=== PATIENT | female | born 1960 | race Caucasian/White ===

== ENCOUNTER → 2021-12-25 13:11 | Outpatient (CLI) | payer OTHER, SELFPAY ==
--- NOTE | ~2021-12-25 | DEXA_ITS ---
Bone Density Report Name: BEATRICE NARANJO Age: 61 Sex: Female Ethnicity: White Date of : 1960 Indication: postmenopausal; screening for osteoporosis; parental hip fracture; Referring Provider: Lg, Amira Felder Study: Bone densitometry was performed. Exam Date: December 25, 2021 Accession number: [id number] Bone Density: Region BMD T-score Z-score Classification AP Spine (L1-L4) 0.886 -1.5 0.2 Osteopenia Femoral Neck (Left) 0.636 -1.9 -0.5 Osteopenia Total Hip (Left) 0.796 -1.2 -0.1 Osteopenia Femoral Neck (Right) 0.653 -1.8 -0.3 Osteopenia Total Hip (Right) 0.800 -1.2 0.0 Osteopenia Total Hip Mean 0.798 -1.2 -0.1 Osteopenia World Health Organization criteria for BMD impression classify patients as: Normal (T-score at or above -1.0), Osteopenia (T-score between -1.0 and -2.5), or Osteoporosis (T-score at or below -2.5). 10-year Fracture Risk(1): Major Osteoporotic Fracture 17% Hip Fracture 1.2% Reported Risk Factors: [place] (), Neck BMD=0.636, BMI=22.4, parental fracture (1) FRAX(R) Version 3.08. Fracture probability calculated for an untreated patient. Fracture probability may be lower if the patient has received treatment. Clinical Information Provided by Patient: Parent has had a hip fracture Has used the following medications: Vitamin D Patient maximum height was 67 Menopause Age: 55 Does not regularly consume dairy products Drinks caffeinated beverages Onset of menses at age 11 Number of children 2 Impression: The patient has low bone mass, based on the Left Femoral Neck T-score. The patient has an estimated ten-year risk of hip fracture of 1.2% and an estimated ten-year risk of major fracture of 17%, based on the WHO FRAX algorithm. The patient has risk factors, including: parental hip fracture. Discussion: BONE DENSITY IS LOW AT ONE OR MORE SKELETAL SITES. This patient's lowest T-score is low at one or more skeletal sites. It meets the World Health Organization's (WHO) criteria for ?low bone mass? (T-score between -1.0 and -2.5). The patient's 10-year risk of fracture as calculated by FRAX is less than the threshold where pharmacological therapy is recommended by the National Osteoporosis Foundation (NOF). However, all treatment decisions require clinical judgment and consideration of individual patient factors, including patient preferences, comorbidities, previous drug use, risk factors not captured in the FRAX model (e.g., frailty, falls, vitamin D deficiency, increased bone turnover, interval significant decline in bone density) and possible under or overestimation of fracture risk by FRAX. The patient should follow a healthful lifestyle (good nutrition with adequate calcium and vitamin D, and appropriate weight-bearing exercise). Follow-Up: Consider repeating this
== END ==
PROVIDERS: PCP Nurse Practitioner Obstetrics & Gynecology; Visit Provider Nurse Practitioner Obstetrics & Gynecology
DX: Z78.0 Asymptomatic menopausal state (principal); M85.89 Other specified disorders of bone density and structure, multiple sites
CPT/HCPCS: 77080

== ENCOUNTER → 2022-07-30 14:56 | Outpatient (CLI) | payer OTHER, SELFPAY ==
--- NOTE | ~2022-07-30 | MM_ITS ---
EXAMINATION: MM screening tracy BI w chidi HISTORY: Screening mammogram TECHNIQUE: Craniocaudal and mediolateral oblique 3-D tomosynthesis images were obtained and synthetic 2-D images were generated. CAD analysis was submitted and interpreted. COMPARISON: 07/27/2021 outside mammogram examination 07/08/2020 bilateral diagnostic mammogram and bilateral breast ultrasound examination 6. I bilateral diagnostic mammogram and bilateral ultrasound examination 01/01/2020 bilateral screening mammogram BREAST PARENCHYMAL COMPOSITION: There are scattered areas of fibroglandular density. FINDINGS: New focal approximately 6 mm irregular opacity is noted in the anterior inner left breast (craniocaud al Tomosynthesis image 11/41). Diagnostic left mammogram and left breast ultrasound examination are r ecommended. Otherwise there is no evidence of suspicious mass, calcification, or architectural distortion to sugg est malignancy in either breast. There has been no suspicious interval change. IMPRESSION: 1. New focal approximately 6 mm irregular opacity in anterior inner left breast on CC view 2. Diagnostic left mammogram and left breast ultrasound examination are recommended. BI-RADS Category 0: Incomplete: Needs additional imaging evaluation. Reviewed, dictated and finalized at location B. 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 New focal approximately 6 mm irregular opacity in anterior inner left breast on CC view 2. Diagnostic left mammogram and left breast ultrasound examination are recomme nded. BI-RADS Category 0: Incomplete: Needs additional imaging evaluation.
== END ==
PROVIDERS: Visit Provider Nurse Practitioner Obstetrics & Gynecology
DX: Z12.31 Encounter for screening mammogram for malignant neoplasm of breast (principal); R92.8 Other abnormal and inconclusive findings on diagnostic imaging of breast
CPT/HCPCS: 77063; 77067

== ENCOUNTER → 2022-08-20 14:01 | Outpatient (CLI) | payer OTHER, SELFPAY ==
--- NOTE | ~2022-08-20 | MMUS_ITS ---
EXAMINATION: MM diagnostic tracy LT w chidi, US breast LT complete HISTORY: Follow-up left breast asymmetry TECHNIQUE: Additional 3-D tomosynthesis images of the left breast were performed and synthetic 2-D im ages were generated. CAD analysis was submitted and interpreted. High resolution complete left breast ultrasound was performed. COMPARISON: Comparison to multiple prior studies sequentially, with oldest reviewed study dated 10/19. BREAST PARENCHYMAL COMPOSITION: Breast composed of scattered areas of fibroglandular density FINDINGS: MAMMOGRAPHIC FINDINGS: There are no suspicious masses, calcifications or architectural distortion in the left breast to sugg est malignancy. ULTRASOUND: Complete US of all 4 quadrants of the left breast and retroareolar region was reviewed. Normal hetero geneous echotexture in the left breast. There is a simple cyst of the left breast at 6:00, 2 cm from the nipple measuring 5 mm. No sonographic evidence for malignancy. IMPRESSION: 1. No evidence for malignancy in the left breast. 2. Routine yearly screening mammogram and regular clinical breast examination are recommended. BI-RADS Category 2: Benign finding(s). Reviewed, dictated and finalized at location A. NESS OFFICE MANAGER IMPRESSION: 1. No evidence for malignancy in the left breast. 2. Routine yearly screening mammogram and regular clinical breast examination a re recommended. BI-RADS Category 2: Benign finding(s).
== END ==
PROVIDERS: Visit Provider Nurse Practitioner Obstetrics & Gynecology
DX: R92.8 Other abnormal and inconclusive findings on diagnostic imaging of breast (principal)
CPT/HCPCS: 76641; 77061; 77065; G0279

== ENCOUNTER → 2023-09-05 14:54 | Outpatient (CLI) | payer MEDICARE, SELFPAY ==
--- NOTE | ~2023-09-05 | MM_ITS ---
EXAMINATION: MM screening [facility] BI w chidi HISTORY: Screening mammogram TECHNIQUE: Craniocaudal and mediolateral oblique 3-D tomosynthesis images were obtained and synthetic 2-D images were generated. CAD analysis was submitted and interpreted. COMPARISON: 08/20/2022, 07/30/2022, 07/27/2021, 07/08/2020 BREAST PARENCHYMAL COMPOSITION: There are scattered areas of fibroglandular density. FINDINGS: No suspicious mass, calcification, or architectural distortion are identified in either mable ast to suggest malignancy. There has been no suspicious interval change. IMPRESSION: 1. No mammographic evidence of malignancy. 2. Recommend routine screening mammography in one year. BI-RADS Category 1: Negative Reviewed, dictated and finalized at location A. CIATE SALES
== END ==
PROVIDERS: PCP Nurse Practitioner Obstetrics & Gynecology; Visit Provider Nurse Practitioner Obstetrics & Gynecology
DX: Z12.31 Encounter for screening mammogram for malignant neoplasm of breast (principal)
CPT/HCPCS: 77063; 77067

== ENCOUNTER 2024-02-20 10:42 | Outpatient (CLI) | payer MEDICARE, SELFPAY ==
--- NOTE | ~2024-02-20 | US_ITS ---
US pelvic complete w TV Ordering provider: Millie Askew History: . Menopausal and female climacteric states . Comparison: None. Technique: Transabdominal and endovaginal ultrasound of the pelvis (Doppler ultrasound interrogation techniques used as needed for this exam.) FINDINGS: CERVIX: Normal. UTERUS: Measures 4.5x 1.6x 3.5 cm in length which is within normal limits and is anteverted. No myom etrial masses. ENDOMETRIUM: Normal in thickness measuring 1.7 mm. No endometrial masses, cysts or fluid. CUL DE SAC: Minimal free fluid. RIGHT OVARY: Not visualized. LEFT OVARY: Not visualized. ADNEXA: Normal. No mass. IMPRESSION: Nonvisualization of the ovaries. Minimal fluid in the cul-de-sac. Otherwise, normal pelvic ultrasound . Reviewed, dictated and finalized at location A. IMPRESSION: Nonvisualization of the ovaries. Minimal fluid in the cul-de-sac. Otherwise, no rmal pelvic ultrasound.
== END 2024-02-20 10:43 ==
LOC: MICIMG 10:45
DX: N95.1 Menopausal and female climacteric states (principal)
CPT/HCPCS: 76830; 76856

== ENCOUNTER 2024-07-03 13:25 | Outpatient (CLI) | payer MEDICARE, SELFPAY ==
--- NOTE | ~2024-07-03 | US_ITS ---
Thyroid ultrasound. Clinical History: Iram's thyroiditis Findings: Real-time sonography of the thyroid gland was performed. The right lobe measures 4.7 x 1.7 x 1.8 cm. The left lobe measures 4.5 x 1.0 x 1.3 cm. The isthmus is 3 mm in AP diameter. Solid hyperechoic nodule at the inferior left thyroid pole measures 2.3 x 1.3 x 1.3 cm. Solid predomi nantly hyperechoic circumscribed mass at the right lower pole measures 2.4 x 1.6 x 1.9 cm. Impression: Bilateral TI-RADS 3 nodules, as above. Given size, annual follow-up ultrasound recommended.. Reviewed, dictated and finalized at location . AND SPICE SUPERVISOR Impression: Bilateral TI-RADS 3 nodules, as above. Given size, annual follow-up ultrasound recommended..
== END 2024-07-03 13:26 | disposition home or self-care (01) ==
LOC: MICIMG 13:28
DX: E04.2 Nontoxic multinodular goiter (principal); E06.3 Autoimmune thyroiditis
CPT/HCPCS: 76536

== ENCOUNTER 2024-09-18 12:45 | Outpatient (CLI) | payer MEDICARE, SELFPAY ==
--- NOTE | ~2024-09-18 | DEXA_ITS ---
Bone Density Report Name: BEATRICE ROMANO Age: 64 Sex: Female Ethnicity: White Date of : 1960 Indication: postmenopausal; screening for osteoporosis; parental hip fracture; Referring Provider: OCTAVIA STARR Study: Bone densitometry was performed. Exam Date: September 18, 2024 Accession number: [id number] Bone Density: Region BMD T-score Z-score Classification AP Spine(L1-L4) 0.881 -1.5 0.3 Osteopenia Femoral Neck (Left) 0.600 -2.2 -0.7 Osteopenia Total Hip (Left) 0.772 -1.4 -0.1 Osteopenia Femoral Neck (Right) 0.692 -1.4 0.2 Osteopenia Total Hip (Right) 0.841 -0.8 0.5 Normal Total Hip Mean 0.806 -1.1 0.2 Osteopenia World Health Organization criteria for BMD impression classify patients as: Normal (T-score at or above -1.0), Osteopenia (T-score between -1.0 and -2.5), or Osteoporosis (T-score at or below -2.5). 10-year Fracture Risk(1): Major Osteoporotic Fracture 20% Hip Fracture 2.7% Reported Risk Factors: [place] (), Neck BMD=0.600, BMI=22.7, parental fracture (1) FRAX(R) Version 3.08. Fracture probability calculated for an untreated patient. Fracture probability may be lower if the patient has received treatment. Clinical Information Provided by Patient: Parent has had a hip fracture Has used the following medications: HRT (i.e. estrogen/hormone therapy), Vitamin D, Calcium Patient maximum height was 67.5 Menopause Age: 53 Drinks caffeinated beverages Onset of menses at age 11 Number of children 2 Impression: The patient has low bone mass, based on the Left Femoral Neck T-score. The patient has an estimated ten-year risk of hip fracture of 2.7% and an estimated ten-year risk of major fracture of 20%, based on the WHO FRAX algorithm. The patient has risk factors, including: parental hip fracture. Discussion: BONE DENSITY IS LOW AT ONE OR MORE SKELETAL SITES. THE PATIENT'S BMD AND CLINICAL RISK FACTORS CONTRIBUTE TO THIS PATIENT'S INCREASED RISK OF FRACTURE. This patient's lowest T-score is low at one or more skeletal sites. It meets the World Health Organization's (WHO) criteria for ?low bone mass? (T-score between -1.0 and -2.5). The patient's 10-year risk of a major osteoporotic fracture as calculated by FRAX exceeds the threshold where pharmacological therapy is recommended by the National Osteoporosis Foundation (NOF). However, all treatment decisions require clinical judgment and consideration of individual patient factors, including patient preferences, comorbidities, previous drug use, risk factors not captured in the FRAX model (e.g., frailty, falls, vitamin D deficiency, increased bone turnover, interval significant decline in bone density) and possible under or overestimation of fracture risk by FRAX. The patient should follow a healthful lifestyle (good nutrition with adequate calcium and vitamin D, and appropriate weight-bearing exercise). Follow-Up: Consider a repeat BMD and Vertebral Fracture Assessment (VFA) exam in 2 years or sooner if medically necessary, to reassess this patient's status. Reported by: GABBY on 09/18/2024 2:33:00 PM. Reviewed, dictated and finalized at location AWill CHANEL
--- OUTSIDE RECORDS SUMMARY | 2024-09-18 14:26 | XMS_ITS | Clinical Summary ---
Author Organization 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 12/22/19 23 Active MAGNESIUM GLYCINATE OR Take by mouth daily. Active Cyanocobalamin (VITAMIN B 12 OR) Take 4,000 mcg by mouth daily. Active HEEL EDGE INKER MACHINE THYROID 120 MG Tab tablet TAKE ONE Tablet BY MOUTH EVERY MORNING AT LEAST 30 MINUTES BEFORE FOOD/MEDSSUPPLE MENTS/COFFEE 03/15/20 24 Active testosterone 100 MG pellet Take by implantation route. Active spironolactone (ALDACTONE) 50 MG tablet TAKE 1/2 TO 1 TABLET BY MOUTH IN THE MORNING FOR PREVENT FACIAL HAIR, ACNE, HAIR LOSS, AND SWELLING Active CHOLECALCIFERO L 1.25 mg capsule TAKE 1 CAPSULE ONE TIME PER WEEK Active LORazepam (ATIVAN) 1 MG tablet 1 tablet (1 mg total) daily as needed. 025 Discontinued( Pt. elected to discontinue med) rosuvastatin (CRESTOR) 5 MG tablet Take 1 tablet (5 mg total) by mouth nightly at bedtime. 04/28/20 025 Discontinued( Pt. elected to discontinue med) IMVEXXY MAINTENANCE PACK 10 MCG INSERT 2 (two) times a week. 03/03/20 23 025 Discontinued( Pt. elected to discontinue med) calcium citrate-vitami n D (CITRACAL PETITES/VIT D) 200-6.25 MG-MCG Tab Take 1 tablet by mouth nightly at bedtime. 025 Discontinued( Pt. elected to discontinue med) traZODone (DESYREL) 50 MG tablet Take 2 tablets (100 mg total) by mouth nightly at bedtime. 2-3 at bedtime 025 Discontinued( Pt. elected to discontinue med) Active Problems Problem Noted Date Diagnosed Date Hallux valgus (acquired), left foot 08/04/2023 Bunion of left foot 06/26/2023 Mixed hyperlipidemia 06/26/2023 Raynaud's phenomenon without gangrene 06/21/2023 Chronic lower back pain 06/21/2023 Encounters Date Type Department Care Team Description 09/18/2024 Orders Only [facility] Orthopedic & Sports Medicine [facility] [address] [place] [address] David Villalobos MD 09/06/2024 Telephone [facility] Family Internal [address] [phone] Rodrick Donohue MD Prior Authorization (MRI RT knee) 09/05/2024 Telephone [facility] Sports Medicine [facility] [address] [place] [address] David Villalobos MD Appointment Request 09/04/2024 Orders Only [facility] Orthopedic Sports [facility] [address] [place] [address] David Villalobos MD 08/30/[address] [facility] Internal [address] [phone] Rodrick Donohue MD Prior Authorization for MRI of knee 08/23/2024 9:00 AM CAT TENDER Office Visit [facility] Internal [address] [phone] Rodrick Donohue MD Knee Pain (Patient c/o RT knee pain, requesting an order for an MRI. Patient notes she has an appointment with ortho in August) 08/23/2024 Travel 08/08/2024 MyChart Message Enc [facility] Family & Internal Medicine [address] [phone] Rodrick Donohue MD Request for MRI of knee 08/06/2024 Telephone [facility] Orthopedic & Sports Medicine [place] [address] [place] [address] David Villalobos MD Question 07/30/2024 Telephone [facility] [place] [address] [place] [address] Donald Almaraz PA Called To Cancel Office Appt. 07/30/2024 Telephone [facility] [place] [address] [place] [address] Donald Almaraz PA Called To Cancel Office Appt. 07/27/2024 Orders Only [facility] [place] [address] [place] [address] David Villalobos MD from Last 3 Months Immunizations Name Administration Dates Next Due Influenza (Generic) 04/14/2022,05/22/2019,2013 Influenza Adult (Generic) 07/16/2021,,05/31/2018,05/19/2017,2015,05/01/2015 Pneumococcal (Prevnar 13) 03/03/2015 Shingrix 07/30/2022,04/14/2022 Tdap (Generic) 03/19/2019 Social History Tobacco Use Types Packs/Day Years Used Date Smoking Tobacco: Never Passive Smoke Exposure: Never Smokeless Tobacco: Never Tobacco Cessation:Counseling Given: Not Answered Alcohol Use Standard Drinks/Week Comments Yes 6.7 (1 standard drink = 0.6 oz p ure alcohol) PHQ-2 Answer Date Recorded Patient Health Questionnaire-2 Score 0 08/23/2024 Comments No Sex and Gender Information Value Date Recorded Sex Assigned at Female 08/23/2024 9:11 AM CAT TENDER Legal Sex Female 10:20 PM CDT Gender Identity Female 08/20/2024 2:56 PM CAT TENDER Sexual Orientation Not on file Last Filed Vital Signs Vital Sign Reading Time Taken Comments Blood Pressure 102/66 08/23/2024 9:11 AM CAT TENDER Pulse 72 08/23/2024 9:11 AM CAT TENDER Temperature 36.7 C (98.1 F) 08/23/2024 9:11 AM CAT TENDER Respiratory Rate 16 08/23/2024 9:11 AM CAT TENDER Oxygen Saturation 98% 08/23/2024 9:11 AM CAT TENDER Inhaled Oxygen Concentration - - Weight 65.7 kg (144 lb 12.8 oz) 08/23/2024 9:11 AM CAT TENDER Height 170.2 cm (5' 7 ) 08/23/2024 9:11 AM CAT TENDER Body Mass Index 22.68 08/23/2024 9:11 AM CAT TENDER Plan of Treatment Upcoming Encounters Date Type Department Care Team (Late st Contact Info) Description 09/19/2024 2:40 PM CAT TENDER Office Visit [facility] Orthopedic & Sports Medicine [facility] [address] [place] [address] David Villalobos MD [address] [place] [address] 09/24/2024 1:20 PM CAT TENDER Office Visit [facility] Orthopedic & Sports Medicine [facility] [address] [place] [address] David Villalobos MD [address] [place] [address] 01/08/2025 8:00 AM CDT Office Visit [facility] Family & Internal Medicine [address] [phone] Rodrick Donohue MD [address] [place] [phone] Health Maintenance Due Date Last Done Comments Colorectal Cancer Screening Colonoscopy (10 Years) 1960 Annual Medicare Wellness Visit 2023 Dexa Scan (General) 2023 Pneumococcal Vaccine: 65+ Years (2 of 2 - PPSV23 or PCV20) 2023 03/03/2015 COVID-19 Vaccine (2 - 2023- season) 2024 07/16/2021 Influenza Adult (#1) 2024 04/14/2022, 07/16/2021, 05/23/2020, Additional history exists Mammogram Screening 08/20/2024 08/20/2022, 07/30/2022, 07/27/2021 DTaP, Tdap and Td Vaccines (2 - Td or Tdap) 03/19/2029 03/19/2019 RSV Immunization or 60+ Years (1 - 1-dose 75+ series) 2033 Zoster Vaccines Completed 07/30/2022, 04/14/2022 Hepatitis C Completed 01/09/2024 PHQ-2 (Physician [place]) Completed 08/23/2024 Meningococcal B Vaccine Aged Out No l onger eligible based on patient's age to complete this topic Meningococcal Vaccine Aged Out No umberto ricky eligible based on patient's age to complete this topic RSV Immunizations Under 20 Months Aged Out No longer eligible based on patient's age to complete this topic Medical Devices Implanted Type Area Director Banking Device Identifier Shelf Expiration Date Model / Serial / Lot Standard Lapidus Plate Implanted:Qty : 1 on 09/15/2023 by David Villalobos MD at [facility] Plate Left: [email or web address] [id number] / / 4.0 X 37.5mm Max Torque Lag Screw Implanted:Qty : 1 on 09/15/2023 by David Villalobos MD at [facility] Screw Left: Foot [employer] [id number] / / 3.5 X36mm Locking Screw Implanted:Qty : 1 on 09/15/2023 by David Villalobos MD at [facility] Screw Left: [facility] [employer] [id number] / / 3.5 X 28mm Locking Screw Implanted:Qty : 1 on 09/15/2023 by David Villalobos MD at [facility] Screw Left: Foot [employer] [id number] / / 3.5mm X 22mm Non-Locking Screw Implanted:Qty : 1 on 09/15/2023 by David Villalobos MD at [facility] Screw Left: Foot [employer] [id number] / / 3.5 X 22mm Locking Screw Implanted:Qty : 1 on 09/15/2023 by David Villalobos MD at [facility] Screw Left: Foot [employer] [id number] / / 3.5mm X 18mm Locking Screw Implanted:Qty : 1 on 09/15/2023 by David Villalobos MD at [facility] Screw Left: Foot [employer] [id number] / / [employer] Nitinol Staple Kit 10mm X 10mm Implanted:Qty : 1 on 09/15/2023 by David Villalobos MD at [facility] Staple Left: Foot [employer] [id number] 06/24/2028 [id number] / / [id number] Procedures Procedure Name Priority Date/Time Associated Diagnosis Comments XR KNEE RT 3V Routine 08/23/2024 10:08 AM CAT TENDER Acute pain of right knee HEPATITIS C ANTIBODY Routine 01/09/2024 3:31 PM CDT Need for hepatitis C screening test MAMMOGRAM GENERIC (SCAN ORDER) 08/20/2022 from Last 3 Months or Most Recently Relevant to Health Maintenance Results * XR KNEE RT 3V (08/23/2024 10:08 AM CAT TENDER) Anatomical Region Laterality Modality Knee Radiographic Sandi ging 08/23/2024 1:15 PM CAT TENDER Impressions 08/23/2024 1:16 PM CAT TENDER IMPRESSION: No significant radiographic abnormality. Ordered By: RODRICK DONOHUE Interpreted By: Aman Mcnulty MD, 08/23/2024 1:15 PM Narrative 08/23/2024 1:16 PM CAT TENDER [facility] [place] [address] Examination: XR KNEE RT 3V Exam time: 08/23/2024 9:55 AM Clinical history: Chronic right knee pain/popping. Comparison: No prior exam Technique: Upright AP and lateral views. Farber view. Findings: Medial, lateral, and patellofemoral joint spaces appear within normal limits. No evidence of hypertrophic degenerative changes. No radiographic evidence of joint effusion. No evidence of fracture, focal bone lesions, or abnormal periosteal reactions. Procedure Note Aman Mcnulty MD - 08/23/2024 [facility] [id number] Examination: XR KNEE RT 3V Exam time: 08/23/2024 9:55 AM Clinical history: Chronic right knee pain/popping. Comparison: No prior exam Technique: Upright AP and lateral views. Farber view. Findings: Medial, lateral, and patellofemoral joint spaces appear withinnormal limits. No evidence of hypertrophic degenerative changes. Noradiographic evidence of joint effusion. No evidence of fracture, focalbone lesions, or abnormal periosteal reactions. IMPRESSION: No significant radiographic abnormality. Ordered By: RODRICK DONOHUE Interpreted By: Aman Mcnulty MD, 08/23/2024 1:15 PM us Rodrick Donohue MD GENERAL IMAGING Final Result * HEPATITIS C ANTIBODY (01/09/2024 3:31 PM CDT) HEPATITIS C AB NON-REACTI VE NON-REACT DOMINGO 01/09/2024 9:46 PM CDT [facility] Comment: ANTIBODIES TO HCV NOT DETECTED. DOES NOT EXCLUDE THE POSSIBILITY OF EXPOSURE TO HCV. 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
--- OUTSIDE RECORDS SUMMARY | 2024-09-18 14:26 | XMS_ITS | Referral Summary ---
Author Organization [facility] Address [address] [place] [address] Care Team Providers Care Vp Outcomes Name Role Phone Rodrick Donohue MD Primary Care Provider [phone] Encounters Date Type Department Care Team Description 08/16/2024 Telephone [facility] Ophthalmology [address] [place] [address] Albaro Clark MD Reschedule POV 08/10/2024 8:30 AM BUTTON BREAKER OPERATOR Office Visit [facility] Ophthalmology [address] [facility] [address] [place] [phone] Albaro Clark MD Pseudophakia, left eye (Primary Dx) 08/09/2024 7:30 AM BUTTON BREAKER OPERATOR - 08/09/2024 8:10 AM BUTTON BREAKER OPERATOR Surgery [facility] Operating Room [address] [facility] [place] [place] [phone] Albaro Clark MD EXTRACTION CATARACT - PHACOEMULSIFICATION AND LENS IMPLANT 08/09/2024 7:24 AM BUTTON BREAKER OPERATOR Anesthesia Event [facility] Operating Room [address] [facility] [place] [phone] Phil Leyva MD Brake, Barbara E., NP 08/09/2024 5:58 AM BUTTON BREAKER OPERATOR - 08/09/2024 8:36 AM BUTTON BREAKER OPERATOR Hospital Encounter [facility] Operating Room [address] 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) Discharge Disposition: Discharge to home or self care 08/06/2024 Telephone [facility] Ophthalmology [address] [facility] [address] [place] [address] Albaro Clark MD 07/20/2024 Orders Only [facility] Ophthalmology [address] [address] Albaro Clark MD Status post cataract extraction and insertion of intraocular lens of left eye (Primary Dx) from Last 3 Months Allergies No known active allergies Medications lifitegrast (Xiidra) 5 % dropperette Administer 0.1 each (1 drop total) into affected eye(s) 2 (two) times a day 3 Active thyroid (ARMOUR THYROID) 120 mg tabletIndicatio ns:hypothyroidi sm Take 1 tablet (120 mg total) by mouth every morning 4 Active magnesium gluconate (MAGONATE) 500 mg (27 mg elemental) tabletIndicatio ns:hypomagnesem ia Take 1 tablet (500 mg total) by mouth nightly Active bisacodyl EC (DULCOLAX EC) 5 mg EC tabletIndicatio ns:constipation Take 1 tablet (5 mg total) by mouth daily as needed for constipation Active prednisoLONE acetate (PRED FORTE) 1 % ophthalmic suspensionIndic ations:Status post cataract extraction and insertion of intraocular lens of left eye Administer 1 drop into the left eye 4 (four) times a day START DROP AFTER SURGERY. BRING DROP TO SURGICAL PROCEDURE 10 mL 2 4 Active moxifloxacin (VIGAMOX) 0.5 % ophthalmic solutionIndicat ions:Status post cataract extraction and insertion of intraocular lens of left eye Administer 1 drop into the left eye 4 (four) times a day START DROP AFTER SURGERY. BRING DROP TO SURGICAL PROCEDURE 3 mL 3 4 Active MELATONIN ORALIndications :sleep Take 6 mg by mouth nightly Active UNABLE TO FINDIndications :hormone replacement Med Name: Estradiol pellets 25 mg every 4 months Active UNABLE TO FIND 1 each nightly Med Name: Progesterone bioidentical hormone Active Active Problems Problem Noted Date Diagnosed Date Combined forms of age-related cataract of left e tessa 06/11/2024 Social History Tobacco Use Types Packs/Day Years Used Date Smoking Tobacco: Never Smokeless Tobacco: Never Tobacco Cessation:Counseling Given: Not Answered AUDIT-C Answer Date Recorded Q1: How often do you have a drink containing alc ohol? 2-3 times a week 08/09/2024 Q2: How many drinks containi ng alcohol do you have on a typical day when you are drinking? 1 or 2 08/09/2024 Q3: How often do you have si x or more drinks on one occasion? Never 08/09/2024 Personal Safety Answer Date Recorded Have you ever been in or are you currently in a harmful physical or emotional relationship or is someone making you feel afraid or unsafe? Denies 08/09/2024 Comments No Sex and Gender Information Value Date Recorded Sex Assigned at Not on file Legal Sex Female 3:49 AM BUTTON BREAKER OPERATOR Gender Identity Female 08/05/2024 8:41 AM BUTTON BREAKER OPERATOR Sexual Orientation Not on file Last Filed Vital Signs Vital Sign Reading Time Taken Comments Blood Pressure 110/64 08/09/2024 8:25 AM BUTTON BREAKER OPERATOR Pulse 60 08/09/2024 8:30 AM BUTTON BREAKER OPERATOR Temperature 36.3 C (97.3 F) 08/09/2024 7:50 AM BUTTON BREAKER OPERATOR Respiratory Rate 27 08/09/2024 8:30 AM BUTTON BREAKER OPERATOR Oxygen Saturation 98% 08/09/2024 8:30 AM BUTTON BREAKER OPERATOR Inhaled Oxygen Concentration - - Weight 65.3 kg (144 lb) 08/09/2024 6:15 AM BUTTON BREAKER OPERATOR Height 170.2 cm (5' 7 ) 08/09/2024 6:15 AM BUTTON BREAKER OPERATOR Body Mass Index 22.55 08/09/2024 6:15 AM BUTTON BREAKER OPERATOR Plan of Treatment Not on file Medical Devices Implanted Type Area Ditch Digger Device Identifier Shelf Expiration Date Model / Serial / Lot [employer] Lens Iol Cca0t0.215 [employer] Cca0t0.215 - [id number] - [id number] Implanted:Qty: 1 on 08/09/2024 by Albaro Clark MD at [facility] Lens Left: Eye [employer] 07/03/2027 CCA0T0.215 / [id number] / Procedures Procedure Name Priority Date/Time Associated Diagnosis Comments EXTRACTION CATARACT - PHACOEMULSIFICATION AND LENS IMPLANT 08/09/2024 7:27 AM BUTTON BREAKER OPERATOR Combined forms of age-related cataract of left eye SERUM HEPATITIS C AB Routine 10/06/2012 4:00 AM CDT from Last 3 Months or Most Recently Relevant to Health Maintenance Results * Serum Hepatitis C ab (10/06/2012 4:00 AM CDT) HCV ab Negative NEG HISTORICAL RESULTS Serum 10/06/2012 4:00 AM CDT Narrative HISTORICAL RESULTS - 10/07/2012 4:37 AM CDT LAB Frequency Standing Order? No Expiration Date: Interpretive Data If confirmation is required, call Laboratory Customer Service to request sample to be sent to [facility] for Hepatitis C Virus (HCV) RNA Detection and Quantitation by Real-Time Reverse Gun Perforator Loader-PCR (RT-PCR). Current interpretive data was last revised on 2011 us Phil Chavarria MD LAB BLOOD ORDERABLES Final Result HISTORICAL RESULTS from Last 3 Months or Most Recently Relevant to Health Maintenance Insurance T MEDICARE [facility] MEDICARE Care Teams Vp Outcomes Relationship Specialty Start Date End Date Rodrick Donohue MD [address] [place] [address] PCP - General Internal Medicine 05/16/24
--- OUTSIDE RECORDS SUMMARY | 2024-09-18 14:26 | XMS_ITS | Clinical Summary ---
Author Organization [facility] Address [address] [place] [address] Care Team Providers Care Airflight Attendants Supervisor Name Role Phone Rodrick Donohue MD Primary Care Provider [phone] Allergies No known active allergies Medications lifitegrast [...] forms of age-related cataract of left e ye 06/11/2024 Encounters Date Type Department Care Team Description 08/16/2024 Telephone [facility] Ophthalmology [facility] [place] [address] Albaro Clark MD Reschedule POV 08/10/2024 8:30 AM TIE IN MACHINE OPERATOR Office Visit [facility] Ophthalmology [address] [place] [phone] Albaro Clark MD Pseudophakia, left eye (Primary Dx) 08/09/2024 7:30 AM TIE IN MACHINE OPERATOR - 08/09/2024 8:10 AM TIE IN MACHINE OPERATOR Surgery [facility] Operating Room [address] [facility] [place] [address] Albaro Clark MD EXTRACTION CATARACT - PHACOEMULSIFICATION AND LENS IMPLANT 08/09/2024 7:24 AM TIE IN MACHINE OPERATOR Anesthesia Event [facility] Operating Room [address] [facility] [place] [address] hPil Leyva MD Brake, Barbara E., NP 08/09/2024 5:58 AM TIE IN MACHINE OPERATOR - 08/09/2024 8:36 AM TIE IN MACHINE OPERATOR Hospital Encounter [facility] Operating Room [address] [facility] [place] [address] Albrao Clark MD 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) Discharge Disposition: Discharge to home or self care 08/06/2024 Telephone [facility] Ophthalmology [address] [place] [address] Albaro Clark MD 07/20/2024 Orders Only [facility] Ophthalmology [address] [place] [address] Albaro Clark MD Status post cataract extraction and insertion of intraocular lens of left eye (Primary Dx) from Last 3 Months Surgical History Surgery Date Site/Laterality Comments BUNIONECTOMY 07/25/2022 - 07/24/2023 Left COLONOSCOPY SECTION x2 UPPER GASTROINTESTINAL ENDOSCOPY APPENDECTOMY 07/25/2013 - 07/24/2014 Medical History Medical History Date Comments Thyroid disease 2010 Hypothyroidism Cataract Family History Medical History Relation Name Comments Macular degeneration Mother Anesthesia problems Neg Hx Glaucoma Neg Hx Relation Name Status Comments Mother Social History Tobacco Use Types Packs/Day Years [...] on file Legal Sex Female 3:49 AM TIE IN MACHINE OPERATOR Gender Identity Female 08/05/2024 8:41 AM TIE IN MACHINE OPERATOR Sexual Orientation Not on file Obstetrics History Last Filed Vital Signs Vital Sign Reading Time Taken Comments Blood Pressure 110/64 08/09/2024 8:25 AM TIE IN MACHINE OPERATOR Pulse 60 08/09/2024 8:30 AM TIE IN MACHINE OPERATOR Temperature 36.3 C (97.3 F) 08/09/2024 7:50 AM TIE IN MACHINE OPERATOR Respiratory Rate 27 08/09/2024 8:30 AM TIE IN MACHINE OPERATOR Oxygen Saturation 98% 08/09/2024 8:30 AM TIE IN MACHINE OPERATOR Inhaled Oxygen Concentration - - Weight 65.3 kg (144 lb) 08/09/2024 6:15 AM TIE IN MACHINE OPERATOR Height 170.2 cm (5' 7 ) 08/09/2024 6:15 AM TIE IN MACHINE OPERATOR Body Mass Index 22.55 08/09/2024 6:15 AM TIE IN MACHINE OPERATOR Plan of Treatment Health Maintenance Due Date Last Done Comments Breast Cancer Screening-Mammogram 1958 Colon Cancer Screening-Colonoscopy 1960 Depression Screening 1958 Osteoporosis Screening-Bone Density Scan 1958 Hepatitis B Screening 1976 Pneumococcal vaccine 65+ (2 of 2 - PPSV23) 03/03/2016 03/03/2015 Well Visit 65+ 2023 Covid-19 Vaccine (4 - 2023-2 5 season) 2024 07/16/2021, 09/16/2020, 08/26/2020 Influenza Vaccine (#1) 2024 2, 07/16/2021, 05/23/2020, Additional history exists Fall Risk Assessment 08/09/2025 08/09/2024 DTaP/Tdap/Td Vaccine (2 - Td or Tdap) 03/19/2029 03/19/2019 Hepatitis C Screening Completed 10/06/2012 Zoster Vaccine Completed 07/30/2022, 04/14/2022 Medical Devices Implanted Type Area Stock Raiser Device Identifier Shelf Expiration Date Model / Serial / Lot [employer] Lens Iol Cca0t0.215 [employer] Cca0t0.215 - [id number] - [id number] Implanted:Qty: 1 on 08/09/2024 by Albaro Clark MD at [facility] Lens Left: Eye [employer] 07/03/2027 CCA0T0.215 / [id number] / Procedures Procedure Name Priority Date/Time Associated Diagnosis Comments EXTRACTION CATARACT - PHACOEMULSIFICATION AND LENS IMPLANT 08/09/2024 7:27 AM TIE IN MACHINE OPERATOR Combined forms of age-related cataract of [...] to request sample to be sent to [facility] for Hepatitis C Virus (HCV) RNA Detection and Quantitation by Real-Time Reverse Lamps Tester And Inspector-PCR (RT-PCR). Current interpretive data was last revised on 2011 us Phil Chavarria MD LAB BLOOD ORDERABLES Final Result HISTORICAL RESULTS from Last 3 Months or Most Recently Relevant to Health Maintenance Insurance AET MEDICARE [employer] MEDICARE Care Teams Airflight Attendants Supervisor Relationship Specialty Start Date End Date Rodrick Donohue MD [address] [place] [address] PCP - General Internal Medicine 05/16/24
--- OUTSIDE RECORDS SUMMARY | 2024-09-18 14:26 | XMS_ITS | Encounter Summary ---
Author Organization [facility] Address [address] [place] [address] Care Team Providers Care Event Decorator And Designer Name Role Phone Rodrick Donohue MD Primary Care Provider [phone] Encounter Details Date Type Department Care Team (Late Contact Info) Description 09/18/2024 Orders Only [facility] Medical [facility] Orthopedic & Sports Medicine [place] [address] [place], [place] [phone] David Villalobos MD [address] [place], [place] [address] [phone] Social History Tobacco Use Types Packs/Day Years Used Date Smoking Tobacco: Never Passive Smoke Exposure: Never Smokeless Tobacco: Never Alcohol Use Standard Drinks/Week Comments Yes 6.7 (1 standard drink = 0.6 oz p ure alcohol) PHQ-2 Answer Date Recorded Patient Health Questionnaire-2 Score 0 08/23/2024 Comments No Sex and Gender Information Value Date Recorded Sex Assigned at Female 08/23/2024 9:11 AM GAMBLING FLOOR SUPERVISOR Legal Sex Female 10:20 PM CDT Gender Identity Female 08/20/2024 2:56 PM GAMBLING FLOOR SUPERVISOR Sexual Orientation Not on file documented as of this encounter Plan of Treatment Upcoming Encounters Date Type Department Care Team (Late st Contact Info) Description 09/19/2024 2:40 PM GAMBLING FLOOR SUPERVISOR Office Visit [facility] Medical [facility] Orthopedic & Sports Medicine [place] [address] [place], [place] [phone] David Villalobos MD [address] [place] [address] 09/24/2024 1:20 PM GAMBLING FLOOR SUPERVISOR Office Visit [facility] Orthopedic & Sports Medicine [facility] [address] [place] [address] David Villalobos MD [address] [place] [address] 01/08/2025 8:00 AM CDT Office Visit [facility] Medical [facility] Family & Internal Medicine [facility] [address] [place] [address] Rodrick Donohue MD [address] [place] [address] Scheduled Orders Name Type Priority Associated Diagnoses Orde r Schedule OXR LT FOOT M3V Imaging Routine History of foot surgery Expected: 09/24/2024, Expires: 09/18/2025 documented as of this encounter Visit Diagnoses Diagnosis History of foot surgery- Primary Personal history of surgery to other organs documented in this encounter Care Teams Event Decorator And Designer Relationship Specialty Start Date End Date Rodrick Donohue MD [address] [place] [address] PCP - General INTERNAL MEDICINE 06/21/23 documented as of this encounter
--- OUTSIDE RECORDS SUMMARY | 2024-09-18 14:27 | XMS_ITS | Encounter Summary ---
Author Organization [facility] Address [facility] [place] [address] Care Team Providers Care Termination Clerk Name Role Phone Rodrick Donohue MD Primary Care Provider [phone] Encounter Details Date Type Department Care Team (Late st Contact Info) Description 06/22/2023 Amityt Message Enc [facility] Family & Internal Medicine [place] [address] [place] [address] Rodrick Donohue MD [address] [place] [phone] Name of Orthopedic surgeon that I will be seeing [place] Social History Tobacco Use Types Packs/Day Years Used Date Smoking Tobacco: Never Smokeless Tobacco: Never Alcohol Use Standard Drinks/Week Comments Yes 5 (1 standard drink = 0.6 oz pur e alcohol) PHQ-2 Answer Date Recorded Patient Health Questionnaire-2 Score 0 06/21/2023 Comments No Sex and Gender Information Value Date Recorded Sex Assigned at Female 08/23/2024 9:11 AM MEDICAL MALPRACTICE PARALEGAL Legal Sex Female 10:20 PM CDT Gender Identity Female 08/20/2024 2:56 PM MEDICAL MALPRACTICE PARALEGAL Sexual Orientation Not on file documented as of this encounter Plan of Treatment Upcoming Encounters Date Type Department Care Team (Late st Contact Info) Description 09/19/2024 2:40 PM MEDICAL MALPRACTICE PARALEGAL Office Visit [facility] Medical [facility] Orthopedic & Sports Medicine - [place] [address] [place] [address] David Villalobos MD [address] [place] [address] 09/24/2024 1:20 PM MEDICAL MALPRACTICE PARALEGAL Office Visit [facility] Orthopedic & Sports Medicine [facility] [address] [place] [address] David Villalobos MD [address] [place] [address] 01/08/2025 8:00 AM CDT Office Visit [facility] Family & Internal Medicine [facility] [address] [place] [address] Rodrick Donohue MD [address] [place] [phone] documented as of this encounter Visit Diagnoses Not on filedocumented in this encounter Care Teams Termination Clerk Relationship Specialty Start Date End Date Rodrick Donohue MD [address] [place] [address] PCP - General INTERNAL MEDICINE 06/21/23 documented as of this encounter
--- OUTSIDE RECORDS SUMMARY | 2024-09-18 14:27 | XMS_ITS | Encounter Summary ---
Author Organization [facility] Address [address] [place] [address] Care Team Providers Care Construction Plumber Name Role Phone Rodrick Donohue MD Primary Care Provider [phone] Encounter Details Date Type Department Care Team (Late st Contact Info) Description 10/05/2023 MyChart Message Enc [facility] Orthopedic & Sports Medicine [place] [address] [place] [address] David Villalobos MD [address] [place] [address] Left foot redness Social History Tobacco Use Types Packs/Day Years Used Date Smoking Tobacco: Never Passive Smoke Exposure: Never Smokeless Tobacco: Never Alcohol Use Standard Drinks/Week Comments Yes 5 (1 standard drink = 0.6 oz pur e alcohol) PHQ-2 Answer Date Recorded Patient Health Questionnaire-2 Score 0 07/13/2023 Comments No Sex and Gender Information Value Date Recorded Sex Assigned at Female 08/23/2024 9:11 AM CONTINUOUS IMPROVEMENT INTERN Legal Sex Female 10:20 PM CDT Gender Identity Female 08/20/2024 2:56 PM CONTINUOUS IMPROVEMENT INTERN Sexual Orientation Not on file documented as of this encounter Plan of Treatment Upcoming Encounters Date Type Department Care Team (Late st Contact Info) Description 09/19/2024 2:40 PM CONTINUOUS IMPROVEMENT INTERN Office Visit [facility] Orthopedic & Sports Medicine - [place] [address] [place] [address] David Villalobos MD [address] [place] [address] 09/24/2024 1:20 PM CONTINUOUS IMPROVEMENT INTERN Office Visit [facility] Orthopedic & Sports Medicine [facility] [address] [place] [address] David Villalobos MD [address] [place] [address] 01/08/2025 8:00 AM CDT Office Visit [facility] Family & Internal Medicine [facility] [address] [place] [address] Rodrick Donohue MD [address] [place] [phone] documented as of this encounter Visit Diagnoses Not on filedocumented in this encounter Care Teams Construction Plumber Relationship Specialty Start Date End Date Rodrick Donohue MD [address] [place] [address] PCP - General INTERNAL MEDICINE 06/21/23 documented as of this encounter
--- OUTSIDE RECORDS SUMMARY | 2024-09-18 14:27 | XMS_ITS | Encounter Summary ---
Author Organization [facility] Address [facility] [place] [address] Care Team Providers Care Manager Of Investigations Name Role Phone Rodrick Donohue MD Primary Care Provider [phone] Encounter Details Date Type Department Care Team (Late st Contact Info) Description 10/06/2023 MyChart Message Enc [facility] Medical [facility] Orthopedic & Sports Medicine - [place] [address] [place] [address] David Villalobos MD [address] [place] [address] Follow up on yesterday s question regarding foot Social History Tobacco Use Types Packs/Day Years Used Date Smoking Tobacco: Never Passive Smoke Exposure: Never Smokeless Tobacco: Never Alcohol Use Standard Drinks/Week Comments Yes 5 (1 standard drink = 0.6 oz pur e alcohol) PHQ-2 Answer Date Recorded Patient Health Questionnaire-2 Score 0 07/13/2023 Comments No Sex and Gender Information Value Date Recorded Sex Assigned at Female 08/23/2024 9:11 AM RECOVERY OPERATOR HELPER Legal Sex Female 10:20 PM CDT Gender Identity Female 08/20/2024 2:56 PM RECOVERY OPERATOR HELPER Sexual Orientation Not on file documented as of this encounter Plan of Treatment Upcoming Encounters Date Type Department Care Team (Late st Contact Info) Description 09/19/2024 2:40 PM RECOVERY OPERATOR HELPER Office Visit [facility] Orthopedic & Sports Medicine - [place] [address] [place] [address] David Villalobos MD [address] [place] [address] 09/24/2024 1:20 PM RECOVERY OPERATOR HELPER Office Visit [facility] Orthopedic & Sports Medicine [facility] [address] [place] [address] Daivd Villalobos MD [address] [place] [address] 01/08/2025 8:00 AM CDT Office Visit [facility] Family & Internal Medicine [facility] [address] [place] [address] Rodrick Donohue MD [address] [place] [address] documented as of this encounter Visit Diagnoses Not on filedocumented in this encounter Care Teams Manager Of Investigations Relationship Specialty Start Date End Date Rodrick Donohue MD [address] [place] [address] PCP - General INTERNAL MEDICINE 06/21/23 documented as of this encounter
--- OUTSIDE RECORDS SUMMARY | 2024-09-18 14:27 | XMS_ITS | Data Portability ---
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 Patient will come back in a year unless there are new symptoms. [email or web address] Not available 03/03/2023 11:45:48 05/07/2024 05/07/2024 Annual gynecological exam performed. Patient will come back in a year unless there are new symptoms. Not available 05/07/2024 13:57:31 Plan of Treatment Reminders Order Date Submit Date Provider Last Modified By Organization Details Last Modified Time Details Appointments [facility] 2024 01:00P M OCTAVIA STARR MD Not available Not available Not available Lab None recorded. Referral orthopedi c surgeon referral 2022 023 Skyla Welsh PA-C, [facility] , [address], [place], [address], 03/03/2023 12:25:30 Procedures None recorded. Surgeries None recorded. Imaging MAMMO, screening , digital, bilateral 2023 024 PEDRO PABLO [facility], [address], [address], [place], [address], 05/14/2024 04:04:35 MAMMO, screening , bilateral 2022 023 [email or web address] [facility], [address], [address], [place], [address], 03/23/2023 12:23:58 MAMMO, screening , bilateral 2021 022 PEDRO PABLO [facility], [address], [address], [place], [address], 07/30/2022 17:18:41 Medication Orders Imvexxy Maintenan ce Pack 10 mcg vaginal insert [address]/Pharmacy #[id number], [id number], [address], 03/03/2023 12:23:08 Imvexxy Maintenan ce Pack 10 mcg vaginal insert [address]/Pharmacy #6926, [id number], [address], 04/15/2022 15:34:37 estradiol 0.5 mg tablet [address]/Pharmacy #6926, [id number], [address], 03/03/2023 11:53:46 Prometriu m 100 mg capsule [address]/Pharmacy #6926, [id number], [address], 03/03/2023 11:53:52 Imvexxy Maintenan ce Pack 10 mcg vaginal insert 2021 022 [facility]/Pharmacy #[id number], [id number], [address], 01/13/2022 15:30:33 Patient TargetsNo targets recorded. Patient InstructionsNo instructions recorded. 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 FINAL DIAGN OSIS: Negat julio for Intra epith elial Lesio n or Valerie vásquez (NIL) . Funga l organ isms morph ologi mihai consi stent with Asya da spp. Elect woo lamas jorge d by Jonnie Peoples, CT on 2022 at 11:02 AM ----- ----- ----- ----- ----- ----- ----- ----- ----- ----- ----- ----- ----- ----- ----- ----- ----- ---- HPV RESUL TS: HPV mRNA E6/E7 : No HPV mRNA Detec flor NOTE: This high risk HPV mRNA assay detec ts fourt een high- risk HPV types (16, 18, 31, 33, 35, 39, 45, 51, 52, 56, 58, 59, 66, 68) witho ut diffe renti ation . COMME NT: This speci men was revie wed by a Cytot echno logis t and/o r Patho logis t (as indic ated in this repor t) after evalu ation using the Thinp rep Imagi ng Syste m. CLINI BERNY INFOR MATIO N: Menst rual Statu s: LMP (if appli cable ): Clini berny Histo ry/Pr eviou s Pap: Type of Neopl winsome (if appli cable ): Signi fican t Clini berny Findi ngs: Other Histo ry: Hormo summer (if appli cable ): PAP EDUCA JERMAINE L NOTE: The Pap Test is a scree shani test with an inher ent false negat julio rate. Liqui d-bas ed sampl ing may decre ase, but will not elimi sheila, false negat julio resul ts. A negat julio resul t does not precl ude the prese nce and/o r devel opmen t of disea se, since the prese nce of abnor mal cells in the sampl e depen ds on the locat ion of the lesio n and sampl ing techn ique. Maryse nued regul ar scree shani is the best metho d of cance r preve ntion . If repor flor cytol ogic findi ng do not corre late with physi berny and/o r histo rical findi ngs, furth er inves tigat ion is recom terese d, as clini mihai warrjean nted. Not Available [facility] (Lab) [address] [facility], [place], [address], 03/07/2023 12:05:34 01/13/20 22 DEXA, axial skele ton + verte bral fract ure asses sment No observ ation record ed. [email or web address] [facility] [address], [place], [address], 01/18/2022 19:30:31 07/30/19 23 07/30/2022 MAMMO , scree shani, bilat eral No observ ation record ed. [email or web address] [facility] [address], [place], [address], 08/02/2022 14:54:12 08/20/19 23 08/20/2022 imagi ng/di agnos tic resul t No observ ation record ed. PEDRO PABLO [facility] [address] [address], [place], [address], 08/31/2022 20:49:32 Result Notes None recorded. Procedures Surgical History Date Name Laterality Status Provider Name and Address Organization Details Recorded Time 09/15/19 24 [facility] 14:03:55 03/03/20 23 Date of Last Pap Smear completed [facility] 05/07/2024 14:03:12 08/20/19 23 Date of Last Mammogram completed [facility] 03/03/2023 11:54:43 04/06/20 22 Date of Last Colonoscopy completed [facility] 03/03/2023 11:53:39 04/16/20 21 completed [facility] 10/01/2021 14:25:44 03/24/20 15 Most Recent Bone Density completed [facility] 10/01/2021 14:25:44 Appendectomy completed Cyndie [facility] 10/01/2021 14:25:[address] [facility] 10/01/2021 14:25:53 Tubal Ligation completed [facility] 10/01/2021 14:25:53 Colonoscopy completed Amira Castanon, JOSE- [address], [place], [address], [facility] 10/01/2021 14:52:13 Caesarean Section completed Cyndie [facility] 10/01/2021 14:25:53 Endometrial Ablation completed Amira Castanon [facility] [address], [place], [address], [facility] 10/01/2021 16:44:28 dual energy X-ray absorptiometry completed Amira Castanon [facility] [address], [place], [address], [facility] 10/01/2021 16:44:57 Imaging Results Imaging Date Name Status LastModified by Organiz ation Details LastModified Time 01/12/2022 DEXA, axial skeleton + vertebral fracture assessment completed [address] [facility] [address], [place], [address], 01/18/2022 19:30:31 07/30/2022 MAMMO, screening, bilateral completed [address] [facility] [address], [place], [address], 08/02/2022 14:54:12 08/20/2022 imaging/diagnos tic result completed [facility] [address], [place], [address], 08/31/2022 20:49:32 Procedure Notes None recorded. Medical Equipment None Reported. Allergies No known drug allergies Medications Name Sig Start Date Stop Date Status Note LastModified by Organization Details LastModified Time trazodone 50 mg tablet TAKE 1 TO 2 TABLETS BY MOUTH EVERY NIGHT AT BEDTIME NEEDED 05/06 completed Not Available Not Available Not Available tizanidine 4 mg tablet TAKE 1 TABLET BY MOUTH EVERY 8 HOURS NEEDED 05/06 completed Not Available Not Available Not Available fluconazole 150 mg tablet TAKE ONE TABLET BY MOUTH NOW, MAY REPEAT IN 72 HOURS IF NEEDED. 05/06 completed Not Available Not Available Not Available nifedipine ER 30 mg tablet,exte nded release TAKE 1 TABLET (30 MG TOTAL) BY MOUTH DAILY 05/06 completed Not Available Not Available Not Available sulfamethox azole 800 mg-trimetho prim 160 mg tablet TAKE 1 TABLET BY MOUTH TWICE A DAY FOR 10 DAYS 05/06 completed Not Available Not Available Not Available aspirin 81 mg tablet,warren yed release TAKE 1 TABLET (81 MG TOTAL) BY MOUTH 2 (TWO) TIMES A DAY FOR 30 DAYS. FOR BLOOD CLOT PREVENTIO N 05/07 completed Not Available Not Available Not Available tramadol 50 mg tablet TAKE 1 TABLET (50 MG TOTAL) BY MOUTH EVERY 6 (SIX) HOURS NEEDED FOR PAIN. 05/06 completed Not Available Not Available Not Available oxycodone-a cetaminophe n 5 mg-325 mg tablet TAKE 1-2 TABS BY MOUTH EVERY 4 HOURS NEEDED FOR PAIN.RADHA CATIONS: ACUTE PAIN <7 DAY SUPPLY 05/06 completed Not Available Not Available Not Available trazodone 100 mg tablet Take 1 tablet twice a day by oral route. 03/03 completed Not Available Not Available Not Available cephalexin 500 mg capsule TAKE 1 CAPSULE BY MOUTH 4 TIMES DAILY FOR 7 DAYS. 05/06 completed Not Available Not Available Not Available hydrocortis one 2.5 % topical cream APPLY SPARINGLY TO THE AFFECTED AREA ON FACE TWICE DAILY NEEDED FOR FLARES 03/03 completed Not Available Not Available Not Available estradiol 0.5 mg tablet TAKE 1 TABLET BY MOUTH EVERY DAY active Not Available Not Available No t Available lorazepam 1 mg tablet TAKE 1 TABLET EVERY DAY NEEDED 05/06 completed Not Available Not Available Not Available docusate sodium 100 mg tablet Take 1 tablet every day by oral route. active Not Available Not Available No t Available progesteron e micronized 100 mg capsule TAKE 1 CAPSULE BY MOUTH EVERY DAY FOR 90 DAYS 03/03 completed Not Available Not Available Not Available rosuvastati n 5 mg tablet TAKE 1 TABLET BY MOUTH EVERY DAY 05/06 completed Not Available Not Available Not Available magnesium active Not Available Not Cherise ilable Not Available melatonin active Not Available Not Cherise ilable Not Available estradiol 05/07 completed Not Available Not Available Not Available anastrozole active Not Available Not A vailable Not Available Vitamin D3 active Not Available Not Av ailable Not Available 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 2023 active Not Available Not Available Not Avai lable Vitamin B12 active Not Available Not A vailable Not Available Xiidra 5 % eye drops in a dropperette INSTILL 1 DROP IN BOTH EYES TWICE A DAY active Not Available Not Available No t Available Imvexxy Maintenance Pack 4 mcg vaginal insert INSERT 1 VAGINAL INSERT TWICE A WEEK BY VAGINAL ROUTE AT BEDTIME 03/03 completed Not Available Not Available Not Available Imvexxy Maintenance Pack 10 mcg vaginal insert Insert 1 vaginal insert twice a week by vaginal route at bedtime for 90 days. 05/06 completed Not Available Not Available Not Available testosteron e 100 mg implant pellet Take by implantat ion route. active Not Available Not Available No t Available Vitals Date Recorded Body height Body mass index (BMI) Body weight Provider Name and Address Organization Details Last Updated DateTime 01/13/2022 167.64 cm 23.2 kg/m2 43886.58 g Cyndie Mosher [facility] 01/13/2022 14:31:52 Date Recorded Systolic blood pressure Diastolic blood pressure Provider Name and Address Organization Details Last Updated DateTime 01/13/2022 122 mm[Hg] 74 mm[Hg] ELHAM Tripathi- [address], [place], [address], [facility] 01/13/2022 15:30:54 Date Recorded Body height Body mass index (BMI) Body weight Systolic blood pressure Diastolic blood pressure Provider Name and Address Organization Details Last Updated DateTime 04/15/2022 167.64 cm 23.2 kg/m2 13701.3 g 122 mm[Hg] 72 mm[Hg] Princess Lebron [facility] 14:16:15 Date Recorded Body height Body mass index (BMI) Body weight Provider Name and Address Organization Details Last Updated DateTime 07/09/2022 167.64 cm 22.5 kg/m2 48077.49 g Romana Epstein [facility] 07/09/2022 14:10:58 Date Recorded Systolic blood pressure Diastolic blood pressure Provider Name and Address Organization Details Last Updated DateTime 07/09/2022 122 mm[Hg] 80 mm[Hg] LUCI TripathiNP- [address], [place], [address], [facility] 07/09/2022 14:25:58 Date Recorded Body height Body mass index (BMI) Body weight Systolic blood pressure Diastolic blood pressure Provider Name and Address Organization Details Last Updated DateTime 03/03/2023 167.64 cm 23.2 kg/m2 87440.3 g 122 mm[Hg] 71 mm[Hg] Rachel Parr [facility] 3 11:53:28 Date Recorded Body height Body mass index (BMI) Body weight Systolic blood pressure Diastolic blood pressure Provider Name and Address Organization Details Last Updated DateTime 05/07/2024 167.64 cm 23.6 kg/m2 56953.49 g 128 mm[Hg] 68 mm[Hg] Janette Last [facility] 4 14:00:15 Social History Question Answer Notes LastModified by Organizat ion Details LastModified Time Tobacco Smoking Status Never Smoker Kyung Luciano mile, [facility] 03/03/2023 11:44:05 Do You Have An Advance Directive? No Information not available 10/01/2021 What Is Your Level Of Alcohol Consumption? Moderate Information not available 10/01/2021 Are You Blind Or Do You Have Difficulty Seeing? No Information not available 10/01/2021 What Is Your Level Of Caffeine Consumption? Moderate Information not available 10/01/2021 How Much Tobacco Do You Chew? None Information not available 10/01/2021 In The 14 Days Before Symptom Onset, Have You Had Close Contact With A Laboratory-confir med COVID-19 While That Case Was Ill? No Information not available 10/01/2021 In The 14 Days Before Symptom Onset, Have You Had Close Contact With A Person Who Is Under Investigation For COVID-19 While That Person Was Ill? No Information not available 10/01/2021 Have You Been To An Area Known To Be High Risk For COVID-19? No Information not available 10/01/2021 Are You Deaf Or Do You Have Serious Difficulty Hearing? No Information not available 10/01/2021 What Type Of Diet Are You Following? SPECIFIC Information not available 10/01/2021 What Is The Highest Grade Or Level Of School You Have Completed Or The Highest Degree You Have Received? 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 Yes Information not available 10/01/2021 Do You Use Protection During Sex? No Information not available 10/01/2021 Do You Use Your Seat Belt Or Car Seat Routinely? Yes Information not available 10/01/2021 Do You Have Smoke And Carbon Monoxide Detectors In Your Home? Yes Information not available 10/01/2021 How Much Tobacco Do You Smoke? No Information not available 10/01/2021 Do You Feel Stressed (tense, Restless, Nervous, Or Anxious, Or Unable To Sleep At Night)? [id number] Information not available 10/01/2021 Do You Use Any Illicit Or Recreational Drugs? No Information not available 10/01/2021 Do You Use Sunscreen Routinely? Yes Information not available 10/01/2021 Have You Used IV Drugs? No Information not available 10/01/2021 Sex: Unknown Functional Status Question Answer Note LastModified by Organizat ion Details LastModified Time Do you have difficulty walking or climbing stairs? No [email or web address] Information not available 03/03/2023 Are you able to walk? YESWOREST Information not available 10/01/2021 Are you able to care for yourself? Yes [email or web address] Information not available 03/03/2023 Do you have difficulty dressing or bathing? No [email or web address] Information not available 03/03/2023 What is your exercise level? Moderate Information not available 10/01/2021 Mental Status None recorded. Family History Relationship Description Onset Age of this Age Resolved Age Notes LastModified by Organization Details LastModified Time Sister Multiple sclerosis Not available 03/10/ 2022 14:25:40 Medical History Condition Response History of abnormal pap Y Gynecological History Statement/Question Response Date of Last Mammogram 08/20/2022 Date of LMP 06/24/2007 On BCP's at Conception? N N STIs/STDs N HPV Vaccine Y Current Control Method Menopause Age at First Child 27 Date of Last Colonoscopy 04/06/2022 Most Recent Bone Density 03/24/2015 Sexually Active? Y Menses Monthly N Date of Last Pap Smear 03/03/2023 Sexual Problems? N LMP Approximate 04/16/2021 Y Obstetrics History GPAL:G 2 P 0 0 0 2 Type Value Living 2 Total 2 Past Encounters Encounter ID Performer Location Encounter Start Date Encounter Closed Date Diagnosis/Indication Diagnosis SNOMED-CT Code Diagnosis ICD10 Code Diagnosis Note [id number] Amira Castanon [facility] [address] [address] 10/01/2021 14:05:36 10/01/2021 16:46:02 Gynecologic examination 52613879 Z01.419 Take Calcium with Vitamin D 12-1500mg daily. Do monthly self breast exams. It is advised to get annual flu shot in the fall and she could obtain at [facility] or [facility] clinic. If you haven't received the Tdap vaccine in the last 10 years you should obtain one as well. Have mammogram yearly, bone density every 2-3 years and colonoscop y every 5-10 years depending on findings and history. Engage in daily exercise of low impact aerobic exercise 45-60 minutes 4-5 times weekly. Avoid tobacco and illicit drugs as well as using moderation with alcohol intake less than 1-2 8 oz beverages daily. This lifestyle behavior pattern will lead to less health conditions and longer life span. If BMI greater than 25 weight watchers or dietary consult advised. Questions have been answered. Patient appears to understand instructio ns, but if you have any further questions call or respond to this email Pap/hpvCol on screen UTDDexa orderedSTD Screen declinedGe netic screen discussed- will consider Hx of endo ablation Postmenopausal state 764 61892 Z78.0 Dyspareunia 63492118 N94 .10 Today we agreed to trial of imvexxy for vaginal dryness/at rophy and dyspareuni a in postmenopa use.Has tried E-Ring, Premarin did not like them; and osphena not covered by insurance. Insurance covers imvexxy per pt.Samples given to start.She is aware to use 1 supp insert into vag x 14 nights then, use 2x/wk for maintenanc e and RTO x 3mos for med check. Use VCG moisturizi ng daily and for sexual lubricant as well. Counseled on medication R/B's, Most common side effects, & use. All questions were answered to patient satisfacti on. [id number] Amira Casatnon [facility] [address],[place] [address] 01/13/2022 14:14:04 01/13/2022 16:39:51 Dyspareunia 54821918 N94.10 Switch to Imvexxy 10mcg vaginal E therapy as 4mcg is not meeting our goals of more comfortabl e sexual activity; and only minimal improvemen ts in quality of vaginal tissues.Mynor correa has continued to moisturize daily with Crisco.Dis cussed changing soaps to Dove white bar hypoallerg enic unscented. RTO x 3mos vulva med check Time spent in visit is a total of 30 mins with at least 50% of visit consisting of counseling and review of plan of care. 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 After reviewing her options she has opted to continue her lifestyle changes consistent ly and we can r/p Dexa x 2yrs. If changes her mind about pharm therapy can contact office & let me know. All questions answered & hard copy of Dexa printed for patient. [id number] Amira Castanon [facility] [address],[facility] [place] [address] 04/15/2022 14:10:50 04/15/2022 16:58:57 Menopausal symptom 79752182 N95.1 Today we discussed return to HRT low low dose since still having multiple menopause sx's that are disrupting quality of life such as daily hot flashes, night sweats, sleep disruption , irritabili ty. Counseled on the following: Females >10yrs past menopause (& age 60yo+) are generally not good candidates for starting (1st use) systemic HT. Decisions to continue systemic HT > a decade past menopause (or past age 60yo) requires balancing R/B's; & individual ized needs. Non-hormon al options may be more appropriat e for females >10yrs past menopause. Verbalized understand ing and accepts risks of continuing this regimen. Time spent in visit is a total of 15 mins with at least 50% of visit consisting of counseling and review of plan of care. Dyspareunia 65153310 N94 .10 Doing well on Imvexxy 10mcg.Noti bruno decrease vaginal dryness along with crisco applicatio nsAdmitted to not being ready to try penetrativ e intercours e yet but will consider before her return.Spo use going through some health issues currently as well but in a more positive place. [id number] Amira Castanon , ELHAM[facility] [address],[facility] [place] [address] 07/09/2022 14:05:37 07/09/2022 14:36:38 Menopausal symptom 80202560 N95.1 Here today for medication check of HRT.Report s it has dramatical ly improved her sleep and overall quality of life.Feeli ng more energetic. Mood great.Aron es neg side effects.RF x 1yr sent Counseled again on the following: Females >10yrs past menopause (& age 60yo+) are generally not good candidates for starting (1st use) systemic HT. Decisions to continue systemic HT > a decade past menopause (or past age 60yo) requires balancing R/B's; & individual ized needs. Non-hormon al options may be more appropriat e for females >10yrs past menopause. Verbalizes she accepts these risks. Time spent in visit is a total of 15 mins with at least 50% of visit consisting of counseling and review of plan of care. Screening mammography 24 230416 Z12.31 Lost order for mammoNew copy given [id number] ELHAM Tripathi-[facility] [address] [address] 03/03/2023 11:43:50 03/03/2023 12:25:29 Gynecologic examination 61498176 Z01.419 Z11.51 Take Calcium with Vitamin D 12-1500mg daily. Do monthly self breast exams. It is advised to get annual flu shot in the fall and she could obtain at [facility] or [facility] care clinic. If you haven't received the Tdap vaccine in the last 10 years you should obtain one as well. Have mammogram yearly, bone density every 2-3 years and colonoscop y every 5-10 years depending on findings and history. Engage in daily exercise of low impact aerobic exercise 45-60 minutes 4-5 times weekly. Avoid tobacco and illicit drugs as well as using moderation with alcohol intake less than 1-2 8 oz beverages daily. This lifestyle behavior pattern will lead to less health conditions and longer life span. If BMI greater than 25 weight watchers or dietary consult advised. Questions have been answered. Patient appears to understand instructio ns, but if you have any further questions call or respond to this email Pap/hpv sent USPSTF recommends against screening for cervical cancer in women older than 65yo, those who've had a hysterecto my for non-cancer indication s, & who have had adequate prior screening & are not otherwise at high risk for cervical cancer. STD Screen declinedGe netic Screen declinedCo umberto Screen UTD PCPDexa Screen UTD PCPRoutine Labs UTD PCP Screening mammography 24 444121 Z12.31 Dyspareunia [id number] N94 .10 Doing well on Imvexxy 10mcg.Wish es to continue.S topped PO HRT--weane d off and doing well. Chronic low back pain 27 [id number] M54.50 requests referral [id number] OCTAVIA STARR MD [place] [address] [address] 05/07/2024 13:47:22 05/07/2024 14:38:45 Gynecologic examination 35161851 Z01.419 Well woman care- Cervical cancer screening: Pap smear not indicated- Breast cancer screening: mammogram ordered- Bone mineral screening: DEXA ordered- HPV immunizati on: does not qualify- STD testing: declined- hereditary cancer screening: does not qualify for testing Postmenopausal state 764 [address]109 Z78.0 Health Concerns Section Related Observation LastModified by Organization Detai ls LastModified Time None Recorded Concern Status LastModified by Organization Details LastModified Time None Recorded Advance Directives Directive N: Payers Encounter Date Sequence Insurance Name Policy Number Policy Lara Covered Member ID Lara Member ID Guarantor Name 01/13/2022 1 [employer] - CHOICE (POS II) [id number] Triny J Alcaraz [id number] Triny J Alcaraz 04/15/2022 1 [employer] - CHOICE (POS II) [id number] Triny J Alcaraz [id number] Triny J Alcaraz 07/09/2022 1 [employer] - CHOICE (POS II) [id number] Triny J Alcaraz [id number] Triny J Alcaraz 03/03/2023 1 [employer] - CHOICE (POS II) [id number] Triny J Alcaraz [id number] Triny Garcia Alcaraz 05/07/2024 1 [employer] (MEDICARE REPLACEMENT PPO) [id number] Triny J Alcaraz [id number] Triny J Alcaraz Notes Date Note Type Note Provider Name and Address Organization Details Recorded Time 01/13/2022 text/html Here today for m ed check of imvexxy & review/treatment options for Dexa 2021. Amira Castanon [facility] [address], [place], [address], [facility] 01/13/2022 15:31:53 04/15/2022 text/html Here today for medication check of Imvexxy. Amira Castanon [facility] [address], [place], [address], [facility] 04/15/2022 15:40:07 07/09/2022 text/html Here today for medication check of HRT. Amira Castanon [facility] [address], [place], [address], [facility] 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 Post-MenopausalRep orted bypatient.Menopaus al Symptoms:no menopausal symptoms; normal vaginal lubrication Vaginal Bleeding:history of menopause having occurred; no history of post menopausal bleeding Urinary Symptoms:no hematuria; no incontinence; no nocturia; no urinary frequency Vulva:no genital lesion; no vulvar atrophy Vagina:normal vaginal discharge; no vaginal atrophy Breast:no breast lump; no nipple discharge; no breast pain Sexual Complaints:no sexual complaints Psychological Symptoms:no depression; no anxiety Preventive Measures:encourage regular mammograms starting age 40; encourage self breast examination; encourage regular exercise; encourage no tobacco use; needs to schedule mammogram; history of recent colonoscopy Amira Castanon [facility] [address], [place], [address], [facility] 03/03/2023 12:24:23 05/07/2024 text/html Presents today f or her annual well-woman exam. Denies abnormal vaginal discharge. She is sexually active and denies dyspareunia. She has not noticed any changes or masses in her breasts. Up to date on mammograms. Menopausal, no PMB. No hx of abnormal pap smears. Currently on estradiol and testosterone pellets. Also taking PO progesterone supplementation. Sleeping better and having less pain with intercourse. Discussed necessary labwork to monitor hormone levels and importance of progesterone supplementation. OCTAVIA STARR MD [address], [place], [address], [facility] 05/07/2024 14:24:35 OBGyn Episode Ob Episode Information Episode Created Date Number of Fetuses Patient Bloodtype Patient rh Status Prepregnancy Weight lbs Domestic Partner Domestic Partner Phone Father Name Cleaner Signs Status 10/02/19 22 1 CLOSED Fetus Data First Name Last Name Admitted to NICU Weight (g) Sex Living Outcome Pediatric Complications Fetus ID Race Codes Race Delivery Type F [id number] Repeat Kwadwo Calculation Initial Kwadwo Date Initial Exam Date Initial Exam Provider Initial Ultrasound Date Last Menstrual Period Date Ultra Sound Weeks Gestation 0 Eighteen To Twenty Week Kwadwo Update Ultra Sound Date Fundal Height At Umbil Quickening Date Ultra Sound Latest Weeks Gestation Final Kwadwo Confirmed By Final Kwadwo Confirmed Date Final Kwadwo Date Ultra Sound Latest Days Gestation 0 0 Menstrual History Last Menstrual Date Menses Monthly On Bcp Conception Prior Menses Frequency Hcg Plus Date Menarche Onset Age Delivery Information Delivery Date Delivery Type Labor Anesthesia Weeks Gestation Incision Type Labor Labor Length Hrs Delivered By Post Complications Tubal Sterilization Discharge Date Comments 2 Discharge Information Feeding Method Contraceptive Method Maternal HG B and HCT Levels Ob Episode Information Episode Created Date Number of Fetuses Patient Bloodtype Patient rh Status Prepregnancy Weight lbs Domestic Partner Domestic Partner Phone Father Name Cleaner Signs Status 10/02/19 22 1 CLOSED Fetus Data First Name Last Name Admitted to NICU Weight (g) Sex Living Outcome Pediatric Complications Fetus ID Race Codes Race Delivery Type F [id number] Primary Kwadwo Calculation Initial Kwadwo Date Initial Exam Date Initial Exam Provider Initial Ultrasound Date Last Menstrual Period Date Ultra Sound Weeks Gestation 0 Eighteen To Twenty Week Kwadwo Update Ultra Sound Date Fundal Height At Umbil Quickening Date Ultra Sound Latest Weeks Gestation Final Kwadwo Confirmed By Final Kwadwo Confirmed Date Final Kwadwo Date Ultra Sound Latest Days Gestation 0 0 Menstrual History Last Menstrual Date Menses Monthly On Bcp Conception Prior Menses Frequency Hcg Plus Date Menarche Onset Age Delivery Information Delivery Date Delivery Type Labor Anesthesia Weeks Gestation Incision Type Labor Labor Length Hrs Delivered By Post Complications Tubal Sterilization Discharge Date Comments 8 Discharge Information Feeding Method Contraceptive Method Maternal HG B and HCT Levels
--- OUTSIDE RECORDS SUMMARY | 2024-09-18 14:27 | XMS_ITS | Data Portability ---
Author Organization [facility], [address] [facility] ([place]) Address [address] [place] [address] Care Team Providers Care Meat Puller Name Role Phone HERIBERTO TATE Primary Care Provider Assessment Encounter Date Assessment Date Assessment LastModified by Organization Details LastModified Time 05/03/2024 05/03/2024 Ms. Ogden was scheduled for surveillance colonoscopy on July 05, 2024 at [facility] with Dr. Wayne. GoLytely bowel prep was sent into her preferred pharmacy. The indications, risks, possible complications, and alternatives of colonoscopy with possible biopsies, polypectomy, or cautery were explained to the patient. The risks include, but are not limited to: bleeding, perforation, infection, drug reaction, phlebitis, pneumonia, delayed post-polypectomy or biopsy bleeding, missed lesions, and the remote risk of catastrophic events, such as cardiovascular or pulmonary collapse, stroke, and . The patient indicates that she understands and agrees to proceed. [email or web address] Not available 05/03/2024 10:56:42 07/05/2024 07/05/2024 The indications risks and possible complications and alternatives of colonoscopy with possible biopsies, polypectomy, or cautery, were explained to the patient. The risks include but are not limited to: bleeding, perforation, infection, drug reaction, phlebitis, pneumonia, delayed post polypectomy or biopsy bleeding, missed lesions, and remote risk of catastrophic events, cardiovascular or pulmonary collapse, stroke, and . The patient indicates that she understands and agree to proceed. [email or web address] Not available 07/05/2024 09:11:27 Plan of Treatment Reminders Order Date Submit Date Provider Last Modified By Organization Details Last Modified Time Details Appointments None recorded. Lab None recorded. Referral surgery center referral 2023 024 [email or web address] Not available 11:01:14 Procedures None recorded. Surgeries None recorded. Imaging None recorded. Medication Orders peg 3350-elect rolytes 236 gram-22.74 gram-6.74 gram-5.86 gram solution [address] [facility] ([place], [place])/Pharmacy #[id number], [address] [place] [address], [address], 17:36:31 Patient TargetsNo targets recorded. Patient InstructionsNo instructions recorded. Reason for Referral Surgery Center Referral for History of adenomatous polyp of colon colon Referring Physician: Skyla Pereira, Gastroenterology, Encounter Date: 05/03/2024 Results Created Date Observation Date Name Description Value Unit Range Abnormal Flag Note LastModifiedBy Organization Detail LastModifiedTime 07/05/20 24 07/06/2024 surgi berny patho logy study tissue exam biopsy [facility] [address],[place] [address] Ph. [phone] Dmitry Patel MD, PhD, Medic al Dire tor PETER SON, SARAY Hunt nt: TRINY ALCARAZ Nicole e ID: [id number] Repor t Statu s: Final :0 1960 Case #: [id number] Age: 63 Y Gende r: F Date Colle cted: 07/05 MRN # : [id number] Date Recei franny: 07/05 Repor flor Date: 07/06 FINAL DIAGN OSIS: Colon , proxi mal ascen ding polyp , biops y : - Fragm ents of tubul ar adeno ma Elect woo lamas Verif ied by Fredy Bravo MD Elect woo Signjean [email or web address] 07/06 17:09 SPECI MEN SOURC E: Colon , proxi mal ascen ding polyp , biops y GROSS DESCR IPTIO N: The speci men conta iner( s) and requi sitio n have the same patie nt name. Recei franny in 10% neutr al buffe red forma gonzalo for forma gonzalo-f ixed paraf fin-e mbedd ed secti ons label ed A, proxi mal ascen ding colon polyp are seven fragm ents of yello w-nye soft tissu e that are 0.3-0 .7 cm in great est dimen jovanny. The speci men is entir gaston submi tted for histo logic study in one casse tte. [facility] INFOR MATIO N: Histo ry of colon polyp . Not Available [place] [facility] [address] [place] [address], [address], 07/06/2024 18:11:29 Result Notes None recorded. 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 Procedures Surgical History Date Name Laterality Status Provider Name and Address Organization Details Recorded Time 07/05/20 24 Colonoscopy with biopsy completed Norma Villafana [facility] 08/02/2024 17:37:33 Appendectomy completed Not Available Health Note 05/03/2024 09:37:04 delivery completed Not Available Health Note 05/03/2024 09:37:04 Imaging Results None recorded. Procedure Notes None recorded. Medical Equipment None Reported. Medications Name Sig Start Date Stop Date Status Note LastModified by Organization Details LastModified Time trazodone 50 mg tablet TAKE 1 TO 2 TABLETS BY MOUTH EVERY NIGHT AT BEDTIME NEEDED 05/03 completed Not Available Not Available Not Available tizanidine 4 mg tablet TAKE 1 TABLET BY MOUTH EVERY 8 HOURS NEEDED 05/03 completed Not Available Not Available Not Available fluconazole 150 mg tablet TAKE ONE TABLET BY MOUTH NOW, MAY REPEAT IN 72 HOURS IF NEEDED. 05/03 completed Not Available Not Available Not Available acetazolami de 250 mg tablet TAKE 1 TABLET BY MOUTH TWICE A DAY active Not Available Not Available No t Available nifedipine ER 30 mg tablet,exte nded release TAKE 1 TABLET (30 MG TOTAL) BY MOUTH DAILY 05/03 completed Not Available Not Available Not Available sulfamethox azole 800 mg-trimetho prim 160 mg tablet TAKE 1 TABLET BY MOUTH TWICE A DAY FOR 10 DAYS 05/03 completed Not Available Not Available Not Available aspirin 81 mg tablet,warren yed release TAKE 1 TABLET (81 MG TOTAL) BY MOUTH 2 (TWO) TIMES A DAY FOR 30 DAYS. FOR BLOOD CLOT PREVENTIO N active Not Available Not Available No t Available tramadol 50 mg tablet TAKE 1 TABLET (50 MG TOTAL) BY MOUTH EVERY 6 (SIX) HOURS NEEDED FOR PAIN. 05/03 completed Not Available Not Available Not Available oxycodone-a cetaminophe n 5 mg-325 mg tablet TAKE 1-2 TABS BY MOUTH EVERY 4 HOURS NEEDED FOR PAIN.RADHA CATIONS: ACUTE PAIN <7 DAY SUPPLY 05/03 completed Not Available Not Available Not Available cephalexin 500 mg capsule TAKE 1 CAPSULE BY MOUTH 4 TIMES DAILY FOR 7 DAYS. 05/03 completed Not Available Not Available Not Available docusate sodium 100 mg capsule Take 1 capsule every day by oral route. active Not Available Not Available No t Available lorazepam 1 mg tablet TAKE 1 TABLET EVERY DAY NEEDED 05/03 completed Not Available Not Available Not Available spironolact one 50 mg tablet TAKE 1/2 TO 1 TABLET BY MOUTH IN THE MORNING FOR PREVENT FACIAL HAIR, ACNE, HAIR LOSS, AND SWELLING active Not Available Not Available No t Available Dulcolax (bisacodyl) 5 mg tablet,warren yed release Take 2 tablets every day by oral route. active Not Available Not Available No t Available rosuvastati n 5 mg tablet TAKE 1 TABLET BY MOUTH EVERY DAY 05/03 completed Not Available Not Available Not Available progesteron e 200 mg vaginal suppository Insert 1 supposito ry every day by vaginal route at bedtime. active Not Available Not Available No t Available melatonin TAKE 1 IN THE EVENING NEEDED FOR INSOMNIA active Not Available Not Available No t Available estradiol Insert 1 pellet every 4 months active Not Available Not Available No t Available anastrozole insert 1 pellet every 4 months active Not Available Not Available No t Available testosteron e Insert 1.5 pellets every 4 months active Not Available Not Available No t Available multivitami n TAKE 2 IN THE EVENING WITH FOOD active Not Available Not Available No t Available cholecalcif christelle (vitamin D3) 1,250 mcg (50,000 unit) capsule TAKE 1 CAPSULE ONE TIME PER WEEK active Not Available Not Available No t Available magnesium glycinate take 1 in the evening active Not Available Not Available No t Available GaviLyte-G 236 gram-22.74 gram-6.74 gram-5.86 gram oral solution TAKE DIRECTED 08/02 completed Not Available Not Available Not Available CIRCULAR RIPSAW OPERATOR Thyroid 90 mg tablet TAKE ONE Tablet BY MOUTH EVERY MORNING AT LEAST 30 MINUTES BEFORE FOOD/MEDS /SUPPLEME NTS/ COFFEE active Not Available Not Available No t Available L-Methyl-B6 -B12 take 1 in the morning active Not Available Not Available No t Available Xiidra 5 % eye drops in a dropperette INSTILL 1 DROP INTO BOTH EYES ONCE A DAY active Not Available Not Available No t Available CIRCULAR RIPSAW OPERATOR Thyroid 120 mg tablet TAKE ONE Tablet BY MOUTH EVERY MORNING AT LEAST 30 MINUTES BEFORE FOOD/MEDS SUPPLEMEN TS/COFFEE active Not Available Not Available No t Available Imvexxy Maintenance Pack 10 mcg vaginal insert INSERT 1 VAGINAL INSERT TWICE A WEEK BY VAGINAL ROUTE AT BEDTIME FOR 90 DAYS. 05/03 completed Not Available Not Available Not Available Vitals Date Recorded Body height Body mass index (BMI) Body weight Systolic blood pressure Diastolic blood pressure Provider Name and Address Organization Details Last Updated DateTime 05/03/2024 170.18 cm 22.7 kg/m2 99665.89 g 108 mm[Hg] 62 mm[Hg] Skyla Pereira, PROCTOLOGIST, FLOOR HELPER [address] [place] [address], [phone], [place] - [facility] 4 10:53:36 Social History Question Answer Notes LastModified by Organizat ion Details LastModified Time Tobacco Smoking Status Never Smoker Not Available Health Note 05/03/2024 09:37:05 Do You Have An Advance Directive? No [email or web address] Information not available 05/03/2024 What Is Your Level Of Alcohol Consumption? Occasional [email or web address] Information not available 05/03/2024 How Many Times Per Week Do You Consume Alcohol? 1-2 Times Per Week [email or web address] Information not available 05/03/2024 What Is Your Level Of Caffeine Consumption? Occasional [email or web address] Information not available 05/03/2024 Are You Currently Employed? 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 3-4 Times Per Week [email or web address] Information not available 05/03/2024 Do You Have A Medical Power Of Lean Manager? No [email or web address] Information not available 05/03/2024 What Was The Date Of Your Most Recent Tobacco Screening? 05/03/2024 [email or web address] Information not available 05/03/2024 What Is Your Relationship Status? [email or web address] Information not available 05/03/2024 Do You Use Any Illicit Or Recreational Drugs? No [email or web address] Information not available 05/03/2024 Sex: Unknown Functional Status Question Answer Note LastModified by Organization D etails LastModified Time What is your exercise level? Moderate [email or web address] Information not available 05/03/2024 Mental Status None recorded. Family History Relationship Description Onset Age of this Age Resolved Age Notes LastModified by Organization Details LastModified Time Mother Osteoporosis [email or web address] Not availa ble 05/03/2024 09:37:04 Mother Disorder of thyroid gland [email or web address] Not available 2023 09:37:04 Sister Osteoporosis [email or web address] Not availa ble 05/03/2024 09:37:04 Sister Disorder of thyroid gland [email or web address] Not available 2023 09:37:04 Brother Disorder of thyroid gland [email or web address] Not available 2023 09:37:04 Medical History Condition Response Diabetes N Anxiety Disorder N Bleeding Disorder N Attention-deficit Hyperactivity Disorder N High Blood Pressure N Arthritis N Hyperlipidemia N Cancer N Stroke N Thyroid Problems N Asthma N Depression N COPD N Anemia N Seizures N Heart Disease N Fibromyalgia N Osteoporosis N Kidney Disease N Gynecological HistoryNo gynecological history recorded. Obstetrics History GPAL:G 0 P 0 0 0 0 Past Encounters Encounter ID Performer Location Encounter Start Date Encounter Closed Date Diagnosis/Indication Diagnosis SNOMED-CT Code Diagnosis ICD10 Code Diagnosis Note [id number] Rene Wayne MD [address] [place] [place] [address] [place] [phone] 05/03/2024 09:39:53 05/03/2024 11:53:38 History of adenomatous polyp of colon 911630955 Z86.0100 Congenital redundant colon 549313031 Q43.8 Family his tory of cancer of colon 245359315 Z80.0 Pre-surger y evaluation 317017742 Z01.818 [id number] Tin Scott MD [facility] Anesthesi a S [address] [place] [phone] 07/05/2024 08:35:21 07/13/2024 13:08:45 [id number] Rene Wayne MD [facility] [place] [address] [place] [phone] 07/05/2024 08:35:22 07/09/2024 08:50:24 History of adenomatous polyp of colon 859429268 Z86.0101 Preprocedu ral examination done 8330138951 29177 Z01.818 Family his tory of cancer of colon 560637221 Z80.0 Benign inder plastic disease 60404424 D36.9 Health Concerns Section Related Observation LastModified by Organization Detai ls LastModified Time None Recorded Concern Status LastModified by Organization Details LastModified Time None Recorded Advance Directives Directive N: Payers Encounter Date Sequence Insurance Name Policy Number Policy Lara Covered Member ID Lara Member ID Guarantor Name 05/03/2024 1 [employer] (MEDICARE REPLACEMENT PPO) [id number] Triny Alcaraz [id number] Triny Alcaraz 07/05/2024 1 [employer] (MEDICARE REPLACEMENT PPO) [id number] Triny Alcaraz [id number] Triny Alcaraz 07/05/2024 1 [employer] (MEDICARE REPLACEMENT PPO) [id number] Triny Zelaya Kieran [id number] Triny Daron Alcaraz Notes Date Note Type Note Provider Name and Address Organization Details Recorded Time 4 text/html 63-year-old female, patient of Dr. Berta Sarabia, with history of adenomatous colon polyps, constipation, reflux and a history of esophageal stricture. Other past medical history includes CAD, hyperlipidemia and Raynaud's phenomenon. She is here for surveillance colonoscopy evaluation. Her last colonoscopy in 2020 noted 3 tubular adenomas. There was also redundancy to her colon. She has suffered from constipation for her entire life. She has tried various therapies throughout her life however she gets the best results from Dulcolax taking 2-3 every day. This ensure she has a daily bowel movement. She denies any blood or mucus in her stool, abdominal pain or cramping, nausea or vomiting. She denies any uncontrolled reflux, trouble or painful swallowing. She reports no issues with loss of appetite or unintentional weight loss. There is a family history of colon polyps, with her father. Skyla Pereira, STEPHANI, FLOOR HELPER [address] [place] [address], [phone], [facility] 05/03/2024 10:58:49 4 text/html 63-year-old female, patient of Dr. Berta Sarabia, with history of adenomatous colon polyps, constipation, reflux and a history of esophageal stricture. Other past medical history includes CAD, hyperlipidemia and Raynaud's phenomenon. She is here for surveillance colonoscopy evaluation. Her last colonoscopy in 2020 noted 3 tubular adenomas. There was also redundancy to her colon. She has suffered from constipation for her entire life. She has tried various therapies throughout her life however she gets the best results from Dulcolax taking 2-3 every day. This ensure she has a daily bowel movement. She denies any blood or mucus in her stool, abdominal pain or cramping, nausea or vomiting. She denies any uncontrolled reflux, trouble or painful swallowing. She reports no issues with loss of appetite or unintentional weight loss. There is a family history of colon polyps, with her father. Rene Wayne MD [address] [place] [address], [phone], [facility] 07/22/2024 00:07:48 4 text/html [facility] PRE-ANESTHETIC EVALUATIONReported bypatient.Reason for Visit:PROPOSED PROCEDURE: COLONOSCOPY; SURGEON: Ling Wayne; PREOP DIAGNOSIS: Personal history of colonic polyps Review of Systems General:Exercise tolerance good; Denies SOB, BARROS, PND; Denies chest pain or chest tightness Cardiac:No Hx of CAD; Hyperlipidemia Pulmonary:Respiratory system at baseline Prior Anesthetic Complication:no history of anesthesia complications Family Anesthetic Hx:no history of anesthesia complications Physical Exam: AirwayMP II; Retrognathic TeethCrowns; Prominent upper incisors NeckFull range of motion CardiovascularRegular rate and rhythm RespiratoryClear to auscultation bilaterally; No wheeze noted GastrointestinalNPO status >6 hrs solids, >2 hrs clear liquids Vital Signs:Vital signs reviewed. Please refer to nursing preop note for values Assessment:ASA PS: I Plan:MAC Discussion:I have discussed with the patient the anesthetic plan, alternatives, pertinent risks, and complications; including but not limited to PONV, dental injury, sore throat, [place], stroke, etc. All questions were answered. Patient verbalize(s) understanding and agree(s) to proceed. Jensen Scott MD [address] [place] [address], [phone], [facility] 07/05/2024 09:57:59 OBGyn Episode No OBEpisode recorded.
--- OUTSIDE RECORDS SUMMARY | 2024-09-18 14:27 | XMS_ITS | Encounter Summary ---
Author Organization [facility] Address [address] [place] [address] Care Team Providers Care Telephone Lines Repairer Name Role Phone Rodrick Donohue MD Primary Care Provider [phone] Encounter Details Date Type Department Care Team (Late st Contact Info) Description 10/05/2023 MyChart Message Enc [facility] [place] [address] [place] [address] David Villalobos MD [address] [place] [address] Wrong picture sent Social History Tobacco Use Types Packs/Day Years Used Date Smoking Tobacco: Never Passive Smoke Exposure: Never Smokeless Tobacco: Never Alcohol Use Standard Drinks/Week Comments Yes 5 (1 standard drink = 0.6 oz pur e alcohol) PHQ-2 Answer Date Recorded Patient Health Questionnaire-2 Score 0 07/13/2023 Comments No Sex and Gender Information Value Date Recorded Sex Assigned at Female 08/23/2024 9:11 AM INTELLIGENCE ANALYST Legal Sex Female 10:20 PM CDT Gender Identity Female 08/20/2024 2:56 PM INTELLIGENCE ANALYST Sexual Orientation Not on file documented as of this encounter Plan of Treatment Upcoming Encounters Date Type Department Care Team (Late st Contact Info) Description 09/19/2024 2:40 PM INTELLIGENCE ANALYST Office Visit [facility] - [place] [address] [place], [place] [id number] [phone] David Villalobos MD [address] [place] [address] 09/24/2024 1:20 PM INTELLIGENCE ANALYST Office Visit [facility] [place] [facility] [address] [place] [address] David Villalobos MD [address] [place] [address] 01/08/2025 8:00 AM CDT Office Visit [facility] [address] [place] [address] Rodrick Donohue MD [address] [place] [phone] documented as of this encounter Visit Diagnoses Not on filedocumented in this encounter Care Teams Telephone Lines Repairer Relationship Specialty Start Date End Date Rodrick Donohue MD [address] [place] [id number] PCP - General INTERNAL MEDICINE 06/21/23 documented as of this encounter
--- OUTSIDE RECORDS SUMMARY | 2024-09-18 14:27 | XMS_ITS | Encounter Summary ---
Author Organization [facility] Address [address] [place] [address] Care Team Providers Care Dissolver Operator Name Role Phone Rodrick Donohue MD Primary Care Provider [phone] Encounter Details Date Type Department Care Team (Late st Contact Info) Description 10/03/2023 MyChart Message Enc [facility] [place] [address] [place] [address] David Villalobos MD [address] [place] [address] Need Fluconazole 150 Social History Tobacco Use Types Packs/Day Years Used Date Smoking Tobacco: Never Passive Smoke Exposure: Never Smokeless Tobacco: Never Alcohol Use Standard Drinks/Week Comments Yes 5 (1 standard drink = 0.6 oz pur e alcohol) PHQ-2 Answer Date Recorded Patient Health Questionnaire-2 Score 0 07/13/2023 Comments No Sex and Gender Information Value Date Recorded Sex Assigned at Female 08/23/2024 9:11 AM GAS TECHNICIAN Legal Sex Female 10:20 PM CDT Gender Identity Female 08/20/2024 2:56 PM GAS TECHNICIAN Sexual Orientation Not on file documented as of this encounter Plan of Treatment Upcoming Encounters Date Type Department Care Team (Late st Contact Info) Description 09/19/2024 2:40 PM GAS TECHNICIAN Office Visit [facility] - [place] [address] [place], [place] [id number] [phone] David Villalobos MD [address] [place] [address] 09/24/2024 1:20 PM GAS TECHNICIAN Office Visit [facility] [address] [place] [address] David Villalobos MD [address] [place] [address] 01/08/2025 8:00 AM CDT Office Visit [facility] Internal [facility] [address] [place] [address] Rodrick Donohue MD [address] [place] [phone] documented as of this encounter Visit Diagnoses Not on filedocumented in this encounter Care Teams Dissolver Operator Relationship Specialty Start Date End Date Rodrick Donohue MD [address] [place] [id number] PCP - General INTERNAL MEDICINE 06/21/23 documented as of this encounter
== END 2024-09-18 12:46 | disposition home or self-care (01) ==
PROVIDERS: Visit Provider Obstetrics & Gynecology
DX: Z78.0 Asymptomatic menopausal state (principal); M85.88 Other specified disorders of bone density and structure, other site; M85.852 Other specified disorders of bone density and structure, left thigh; M85.851 Other specified disorders of bone density and structure, right thigh
CPT/HCPCS: 77080

== ENCOUNTER 2024-10-26 13:16 | Outpatient (CLI) | payer MEDICARE, SELFPAY ==
--- NOTE | ~2024-10-26 | MM_ITS ---
EXAMINATION: MM screening tracy BI w chidi HISTORY: Screening TECHNIQUE: Craniocaudal and mediolateral oblique 3-D tomosynthesis images were obtained and synthetic 2-D images were generated. CAD analysis was submitted and interpreted. COMPARISON: Comparison to multiple prior studies sequentially, with oldest reviewed study dated 01/07. BREAST PARENCHYMAL COMPOSITION: Not dense: There are scattered areas of fibroglandular density. FINDINGS: There has been increased density of both breasts symmetrically, compatible with hormone rep lacement therapy. There is no evidence of suspicious mass, calcification, or architectural distortion to suggest malignancy in either breast. There has been no suspicious interval change. IMPRESSION: 1. No mammographic evidence of malignancy. 2. Recommend routine screening mammography in one year. BI-RADS Category 1: Negative Reviewed, dictated and finalized at location A.
== END 2024-10-26 13:17 | disposition home or self-care (01) ==
PROVIDERS: Visit Provider Obstetrics & Gynecology
DX: Z01.419 Encounter for gynecological examination (general) (routine) without abnormal findings (principal); Z12.31 Encounter for screening mammogram for malignant neoplasm of breast
CPT/HCPCS: 77063; 77067

== ENCOUNTER 2025-07-04 12:47 | Outpatient (CLI) | payer MEDICARE, SELFPAY ==
--- NOTE | ~2025-07-04 | US_ITS ---
EXAMINATION: US thyroid DATE: 07/04/2025 13:06 INDICATION: Thyroiditis TECHNIQUE: 07/03/2024 COMPARISON: None. FINDINGS: The right thyroid lobe measures 4.7 x 1.5 x 1.5 cm. The left thyroid lobe measures 4.8 x 1.3 x 1.1 cm. Isthmus: 3 mm Solid nodule in the inferior pole of the right lobe measures 2.4 x 1.4 x 1.8 cm compared to 2.4 x 1.6 x 1.9 cm on the previous exam. Complex nodule in the inferior left lobe measures 1.8 1.2 x 1.1 cm, compared to 2.3 x 1.3 x 1.3 centers on the previous exam. Sonographic features are indeterminate, and not clearly changed, TR 3 from last year. Echotexture and vascular flow of the thyroid otherwise appears normal. IMPRESSION: 1. Bilateral thyroid nodule stable to slightly smaller by measurement on today's exam. 2. Correlation with follow-up thyroid ultrasound in 12 months recommended. Reviewed, dictated and finalized at location A. KILLER IMPRESSION: 1. Bilateral thyroid nodule stable to slightly smaller by measurement on today' s exam. 2. Correlation with follow-up thyroid ultrasound in 12 months recommended.
== END 2025-07-04 12:48 | disposition home or self-care (01) ==
DX: E28.39 Other primary ovarian failure (principal); E34.9 Endocrine disorder, unspecified; E53.9 Vitamin B deficiency, unspecified; E55.9 Vitamin D deficiency, unspecified; R53.83 Other fatigue; Z86.39 Personal history of other endocrine, nutritional and metabolic disease; N95.1 Menopausal and female climacteric states; Z79.890 Hormone replacement therapy; E78.5 Hyperlipidemia, unspecified; E72.11 Homocystinuria; E86.0 Dehydration; N17.9 Acute kidney failure, unspecified; F43.9 Reaction to severe stress, unspecified; Z68.23 Body mass index [BMI] 23.0-23.9, adult
CPT/HCPCS: 76536